=== PATIENT | female | born 1960 | race African-American/Black ===

== ENCOUNTER 2017-05-20 12:54 | Emergency (ER) | payer OTHER ==
[~2017-05-20] VITALS: Ht 157.5 cm; Wt 56.3 kg
[2017-05-20] MEDS ORDERED: NALT50TA PO (13:36)
[2017-05-20 14:08] LABS: ASPARTATE AMINO TRANSFERASE 174 U/L (15-37); BLOOD UREA NITROGEN 21 mg/dL (7-18)
[2017-05-20 14:11] LABS: IS PT STATUS REG ER OR PRE ER? YES
[2017-05-20 14:37] LABS: HEMATOCRIT 39.1 % (34.6-47.8); HEMOGLOBIN 13.5 g/dL (11.7-16.4); WHITE BLOOD COUNT 4.7 x10^3/uL (3.4-10)
[2017-05-20 15:07] VITALS: BP 134/76
== END 2017-05-20 15:10 | disposition home or self-care (01) ==
LOC: ED 14:49
DX: R06.00 Dyspnea, unspecified (principal); I10 Essential (primary) hypertension
CPT/HCPCS: 36415; 71010; 80053; 84484; 85025; 93005; 99285